=== PATIENT | female | born 1945 | race Caucasian/White ===

== ENCOUNTER 2018-10-14 07:27 | Day surgery (SDC) | payer OTHER ==
[~2018-10-14] VITALS: Ht 162.6 cm; Wt 77.6 kg
[~2018-10-14 07:27] MED LIST: ALEVE220 MG PO; AMITRIPTYLINE H25 MG PO; AMLODIPINE BES2.5 MG PO; AMLODIPINE BESYL5 MG PO; ANIMAL CHEWS1 EACH PO; ASPIRIN EC81 MG PO; AVAPRO75 MG PO; CELEBREX200 MG PO; CIPRO500 MG PO; CIPROFLOXACIN500 MG PO; COZAAR100 MG PO; FIBER1 GM PO; FISH OIL 1,0001 EAC5 PO; INVANZ1 GM IM; IRON325 M1 PO; KLOR-CON 1010 MEQ PO; LOSARTAN POTAS100 MG PO; METFORMIN HCL500 MG PO; MIRALAX17 GM PO; NORCO 7.5-3251 EACH PO; OXYCODONE HCL5 MG PO; PREMARIN0.45 MG PO; SENNA S TABLET1 EA PO; SULFAMETHOXAZO1 EAC1 PO; TRIAMTERENE-HC1 EAC1 PO; TRIAMTERENE-HC1 EAC2 PO; ULTRAM50 MG PO; VITAMIN C500 M2 PO; VITAMIN D1000 UNIT PO; VITAMIN E400 UNI1 PO; XARELTO10 MG PO
--- NOTE | 2018-10-14 09:44 | NUR ---
10/14/18 0944 Aparna Schwartz 0922-PATIENT ARRIVED TO PACU ON 3L NC PLACED ON 2L. REACTIVE TO VOICE OPENS EYES DENIES PAIN OR NAUSEA. DROWSY BACK TO SLEEP. PASSING GAS. ABDOMEN SOFT. RR EVEN.
--- NOTE | 2018-10-14 14:47 | NUR ---
PT IN BED, ALERT, ORIENTED AND SUPPORTED BY HER FAMILY. PT HAS HAD SCOPE BEFORE, SEEMED TO TOLERATE PREP. VERY PLEASANT, PT REQUESTED PRAYER-WILL FOLLOW NEEDED
--- NOTE | 2018-10-15 06:15 | OR ---
[facility] [address], [place] [address] Signed DATE OF OPERATION: 10/14/2018 SURGEON: Adelaide Morales MD DATE OF PROCEDURE: 10/14/2018 PREOPERATIVE DIAGNOSES: 1. Personal history of colonic polyps at age 53 (1993). 2. Paternal aunts x2 with colon cancer. 3. A paternal uncle with colon cancer. POSTOPERATIVE DIAGNOSES: 1. 4 mm polyps at 52 cm, 42 cm and 22 cm. 2. Minimal sigmoid diverticulosis. 3. Minimal internal hemorrhoids. PROCEDURE PERFORMED: Colonoscopy with hot biopsy. ESTIMATED BLOOD LOSS: None. INDICATIONS: Obdulia is a 73-year-old female who was asked to see me for a followup colonoscopy. She remembers having a colonoscopy around age 53 back in 1993. She had three colonic polyps removed. She had a colonoscopy about 10 years later and remembers it being negative. However, two paternal aunts and one paternal uncle had colon cancer. She tells me she has no lower GI complaints. She was asked to see me for a colonoscopy. I met with Obdulia in the office. I gave her a pamphlet on colonoscopy. We reviewed that together along with the risks and benefits. She understands there is risk including, but not limited to gas bloating, crampy abdominal pain, bleeding, perforation, requiring surgery, and missed diagnosis. She also understands the need for IV conscious sedation. She had expressed understanding and wished to proceed. PROCEDURE NOTE: Obdulia was taken into our endoscopy suite and placed in the left lateral decubitus position. She was given preoperative antibiotic because of her left knee replacement. She was also given 6 mg of Versed and 100 mcg of fentanyl to cover the case. A digital rectal exam was performed and this was unremarkable. The adult colonoscope was Electronically Signed By: ADELAIDE MORALES MD 10/15/18 0615 PATIENT NAME: OBDULIA CAGLE OPERATIVE REPORT DATE OF : 41 REPORT #: [id number] PHYSICIAN: ADELAIDE MORALES MD PCP: NO APPIAH MD REPORT IS CONFIDENTIAL AND NOT TO BE RELEASED WITHOUT AUTHORIZATION [facility] [address], [place] [address] Signed introduced and advanced all around into the cecum under direct visualization of camera without difficulty. Her prep was quite good. The scope was slowly withdrawn. We took pictures throughout for photodocumentation. We could easily see the appendiceal orifice, the samish's foot, and the ileocecal valve. The above-mentioned polyps were easily removed with the help of hot biopsy forceps. She had just a few small diverticula in the sigmoid colon. Upon retroflexion of scope in the rectum, she just had minimal internal hemorrhoids. After this, the gas was suctioned out and colonoscope removed. Obdulia tolerated the procedure quite well. RECOMMENDATIONS: I will see Obdulia back in my office in 7 to 14 days to review her results. Adelaide Morales MD ALB/MODL /[id number] cc: No Appiah MD Copies: ~ Electronically Signed By: ADELAIDE MORALES MD 10/15/18 0615 PATIENT NAME: OBDULIA CAGLE JEANNA OPERATIVE REPORT DATE OF : 41 REPORT #: [id number] PHYSICIAN: ADELAIDE MORALES MD PCP: NO APPIAH MD REPORT IS CONFIDENTIAL AND NOT TO BE RELEASED WITHOUT AUTHORIZATION
== END 2018-10-14 10:32 | disposition home or self-care (01) ==
LOC: OPS 07:27 → DS 07:27 → OPS 10:32 → DS 11:00
PROVIDERS: Colon & Rectal Surgery
PROC: 0DBE8ZX Excision of Large Intestine, Via Natural or Artificial Opening Endoscopic, Diagnostic (ICD-10-PCS; principal; 2018-10-14 09:00)
DX: Z12.11 Encounter for screening for malignant neoplasm of colon (principal); K63.5 Polyp of colon; K64.8 Other hemorrhoids; K57.30 Diverticulosis of large intestine without perforation or abscess without bleeding; I10 Essential (primary) hypertension; E11.9 Type 2 diabetes mellitus without complications; Z88.6 Allergy status to analgesic agent; Z88.2 Allergy status to sulfonamides; Z88.8 Allergy status to other drugs, medicaments and biological substances; Z86.010 Personal history of colon polyps; Z79.899 Other long term (current) drug therapy
CPT/HCPCS: 99153; G0500; J2250; J3010; J7120

== ENCOUNTER 2018-12-25 17:43 | Emergency (ER) | payer OTHER ==
[~2018-12-25] VITALS: Ht 162.6 cm; Wt 77.6 kg
[2018-12-25] MEDS ORDERED: NORCO 5-325 TA1 EACH PO (19:11)
== END 2018-12-25 19:16 | disposition home or self-care (01) ==
LOC: ED 17:43
DX: S42.002A Fracture of unspecified part of left clavicle, initial encounter for closed fracture (principal); I10 Essential (primary) hypertension; Z87.891 Personal history of nicotine dependence; Z90.710 Acquired absence of both cervix and uterus; Z88.2 Allergy status to sulfonamides; Z88.1 Allergy status to other antibiotic agents; Z88.6 Allergy status to analgesic agent; Z79.899 Other long term (current) drug therapy; W18.30XA Fall on same level, unspecified, initial encounter
CPT/HCPCS: 71046; 73030; 99283-25

== ENCOUNTER 2023-05-28 14:10 | Inpatient (IN) | payer MEDICARE, OTHER ==
[~2023-05-28] VITALS: Ht 162.6 cm; Wt 57.7 kg
[~2023-05-28 14:10] MED LIST changes: +NORCO 5-325 TA1 EACH PO
[2023-05-28] MEDS ORDERED: VENTOLIN HFA18 GM INH (14:29)
[2023-05-28] MEDS ORDERED: METFORMIN HCL500 M1 PO (14:30)
[2023-05-28] MEDS ORDERED: AMLODIPINE BESYL5 MG PO (14:30)
[2023-05-28 14:58] LABS: BASOPHILS 0.7 % (0-2); EOSINOPHILS 5.3 % (0-6); HEMATOCRIT 39.8 % (35.0-50.0); HEMOGLOBIN 13.2 g/dL (12.0-18.0); LYMPHOCYTES 7.2 % (24-44); MCH 29.7 (27-36); MCHC 33.1 g/dl (30-36); MCV 89.6 fl (81-99); MONOCYTES 6.9 % (0-12); NEUTROPHILS 79.9 % (39-80); PLATELET COUNT 272 K/uL (140-440); RBC 4.45 M/ul (4.3-5.7); RDW 13.6 (10.5-15.0)
[2023-05-28 15:32] LABS: ALBUMIN 2.5 g/dL (3.4-5.0); ALBUMIN/GLOBULIN RATIO 0.69 (1.1-2.4); ANION GAP 11.7 (7-21); BILIRUBIN, TOTAL 0.5 ng/dL (0.2-1.0); BUN/CREATININE RATIO 18.38 (6.0-28.6); CALCIUM 8.4 mg/dL (8.5-10.1); CREATININE, SERUM 1.36 mg/dL (0.55-1.02); POTASSIUM 3.7 mmol/L (3.5-5.1); PROTEIN, TOTAL 6.1 g/dL (6.4-8.2)
[2023-05-28 17:04] LABS: INFLUENZA B NAA NEGATIVE (NEGATIVE); RESPIRATORY SYNCYTIAL VIR NAA NEGATIVE (NEGATIVE)
--- NOTE | 2023-05-28 19:00 | NUR ---
THIS RN DOWN TO GET PATIENT FROM ED. SKIN CHECK PROVIDED WITH ED NURSE. PATIENT NOTED TO HAVE RED COCCYX AND MULTIPLE SKIN ABRASIONS TO HER ARMS. PATIENT VITALS COMPLETED ON ARRIVAL TO CCU ROOM 128. PATIENT IS ADMITTED A MS HOUSE CONVIENCE PATIENT. PATIENT ORIENTED TO HER ROOM AND PLAN OF CARE. WILL GIVE REPORT TO MECHANICAL SHOVEL OPERATOR RN.
[2023-05-28 19:27] VITALS: BP 118/57
--- NOTE | 2023-05-28 19:45 | NUR ---
SHIFT REPORT RECEIVED. PATIENT APPEARS RESTFUL WITH EYES CLOSED. VS STABLE. CALL LIGHT IN REACH. ROOM CHECK DONE AND WHITE BOARD UPDATED.
--- NOTE | 2023-05-28 21:30 | NUR ---
PATIENT WOKE EASILY TO VOICE. PATIENT DENIED ANY CONCERNS AT THIS TIME. UP TO THE C TO VOID. PATIENT IS SLIGHTLY UNSTEADY ON HER FEET; 1PA TO STAND AND PIVOT REQUIRED. PATIENT TOLERATED ACTIVITY. PATIENT LUNG SOUNDS SIGNIFICANTLY DIMINISHED ON THE RIGHT. CLEAR ON THE LEFT. PATIENT DENIED SOB BUT APPEARS WINDED UPON TRANSFER BACK TO BED. PATIENT PROVIDED ICE WATER. ACCU CHECK DONE; HELD INSULIN DUE TO LACK OF PO INTAKE. PATIENT RESTING IN BED. CALL LIGHT IN REACH.
--- NOTE | 2023-05-28 22:00 | NUR ---
PICTURES TAKEN OF PATIENT'S RIGHT ARM FOR CHART. PATIENT REPORTS WOUNDS FROM GLF. AREAS CLEANED WITH WOUND ASSISTANT OPERATIONS MANAGER. NON-ADHERANT DRESSING PLACED AND WRAPPED WITH KERLEX.
[2023-05-28 22:01] VITALS: BP 132/92
--- NOTE | 2023-05-28 23:08 | EKG ---
[facility] [address] [facility] [place] [address] Signed Sinus rhythm with frequent premature ventricular complexes Left axis deviation Minimal voltage criteria for LVH, may be normal variant ( Sukhdev product ) Anteroseptal infarct , age undetermined Abnormal ECG No previous ECGs available Confirmed by Charito Richard MD () on 05/28/2023 11:08:54 PM Electronically Signed By: CHARITO RICHARD MD 05/28/23 2308 PATIENT NAME: OBDULIA CAGLE Electrocardiogram DATE OF : 41 PHYSICIAN: CHARITO RICHARD MD REPORT #: [id number] REPORT IS CONFIDENTIAL AND NOT TO BE RELEASED WITHOUT AUTHORIZATION
--- NOTE | 2023-05-29 01:15 | NUR ---
PATIENT UP TO THE BSC TO VOID. PATIENT MORE STABLE ON HER FEET. PATIENT VOIDED AND RETURNED TO BED. VS DONE. PATIENT DENIED FEELING SOB OR ANY GI UPSET. CALL LIGHT IN REACH.
[2023-05-29 01:19] VITALS: BP 152/75
--- NOTE | 2023-05-29 04:00 | NUR ---
PATIENT DESAT TO 85%. RN NOTED PATIENT'S NC HAD COME OFF. REPLACED 2L NC AND PATIENT'S Sp02 IMPROVED. PATIENT DENIED ANY CONCERNS. REPORTS SLEEPING WELL. APPEARS COMOFRTABLE. CALL LIGHT IN REACH.
[2023-05-29 04:55] VITALS: BP 148/83
--- NOTE | 2023-05-29 04:56 | NUR ---
PATIENT'S HEART RHYTHM CONTINUES TO HAVE FREQUENT PVCs. VS STABLE. HR <100 AND ADEQUATE BP. PATIENT DENIED ANY CONCERNS. ASSESSMENT UNCHANGED. ALLOWED PATIENT TO REST. LABS ORDERED FOR THIS MORNING.
[2023-05-29 05:14] LABS: HEMOGLOBIN 12.8 g/dL (12.0-18.0)
[2023-05-29 05:16] LABS: BASOPHILS 0.7 % (0-2); EOSINOPHILS 9.8 % (0-6); HEMATOCRIT 38.6 % (35.0-50.0); LYMPHOCYTES 8.7 % (24-44); MCH 29.6 (27-36); MCHC 33.2 g/dl (30-36); MCV 89.4 fl (81-99); MONOCYTES 7.8 % (0-12); PLATELET COUNT 232 K/uL (140-440); RBC 4.32 M/ul (4.3-5.7); RDW 13.8 (10.5-15.0)
[2023-05-29 05:30] LABS: ALBUMIN 2.3 g/dL (3.4-5.0); ALBUMIN/GLOBULIN RATIO 0.68 (1.1-2.4); ANION GAP 9.7 (7-21); BILIRUBIN, TOTAL 0.5 ng/dL (0.2-1.0); CREATININE, SERUM 0.95 mg/dL (0.55-1.02); MAGNESIUM 1.4 mg/dL (1.8-2.4); PHOSPHORUS, INORGANIC 3.7 mg/dL (2.5-4.9); POTASSIUM 3.7 mmol/L (3.5-5.1); PROTEIN, TOTAL 5.7 g/dL (6.4-8.2)
--- NOTE | 2023-05-29 06:33 | NUR ---
PATIENT UP TO THE BSC TO VOID AND BACK TO THE BED. SITTING AT THE EDGE OF THE BED. COFFEE AND WATER PROVIDED. PATIENT DENIED FEELING SOB OR HAVING PAIN. CONTINUES TO HAVE 2L NC. DISCUSSED LABS AND HEART RHYTHM WITH . ORDERS RECEIVED FOR MAG REPLACEMENT. SEE EMAR.
--- NOTE | 2023-05-29 07:30 | NUR ---
REPORT RECEIVED FROM SHAWN FAULKNER. PT RESTING WITH EYES CLOSED, RESP EVEN AND UNLABORED. ON GRADUATE STUDENT WITH HR 90'S.
[2023-05-29 08:28] VITALS: BP 116/93
[2023-05-29 08:38] LABS: CALCIUM 8.2 mg/dL (8.5-10.1)
[2023-05-29] MEDS ORDERED: LOSARTAN POTAS100 MG PO (08:38)
[2023-05-29] MEDS ORDERED: AMITRIPTYLINE H25 MG PO (08:42)
[2023-05-29] MEDS ORDERED: PRAVASTATIN SOD40 MG PO (08:43)
--- NOTE | 2023-05-29 08:58 | NUR ---
DR RAMIREZ IN TO SEE PT AND DISCUSS PLAN OF CARE WITH HER AND HER . PHYSICAL THERAPY NOW IN TO EVALUATE PT.
--- NOTE | 2023-05-29 10:11 | NUR ---
MED REC COMPLETE
--- NOTE | 2023-05-29 11:00 | NUR ---
DR FLORIAN MONROE TO SEE PT AND DISCUSS PLAN FOR THORACENTESIS LATER TODAY.
--- NOTE | 2023-05-29 11:32 | NUR ---
PT IN [facility] [employer]. GAVE GUIDEPOST WITH PRAYER CARD AND CONTACT CARD. PRAYED FOR RELIEF FROM DISCOMFORT AND ABIDING PEACE.
--- NOTE | 2023-05-29 11:36 | NUR ---
PATIENT ALERT AND ORIENTED UP IN RECLINER. STATES SHE LIVES WITH SPOUSE CURRENTLY, BUT IS MOVING INTO TRAILER HOME WITH SPOUSE AND GRANDDAUGHTER. STATES THERE ARE STEPS TO GET IN, FAMILY IS PLANNING ON BUILDING A RAMP. STATES SHE HAS A WALKER, SHE HAS JUST RECENTLY BEGUN TO USE. DENIES OTHER DME AT THIS TIME. STATES SHE STILL DRIVES, OCCASIONALLY. FAMILY IS ALSO ABLE TO ASSIST WITH DRIVING/TRANSPORTATION, HOWEVER, AFTER DISCUSSION WITH PT, FEEL PATIENT SHOULD NOT BE DRIVING. PATIENT AGREEABLE TO HOME HEALTH PT/OT AT DC TO HOME. STATES SHE IS NOT HAVING ISSUES FINANCIALLY, BECAUSE HER AND HER SPOUSE AND GRANDDAUGHTER WILL BE LIVING WITH EACHOTHER TO HELP SUPPORT THEM ALL. DENIES CURRENT NEEDS AT THIS TIME. STATES [facility] IS HER PREFERENCE FOR HOME HEALTH SINCE SHE IS RELOCATING TO [facility].
--- NOTE | 2023-05-29 13:18 | NUR ---
Received call from Vicente Guzman RN. Planning to DC patient, but patient has been unable to reach her caregiver. [facility] nurse [facility] and spoke with KAUSHIK Caal. States she will contact caregiver company to let them know patient may be DC'd home today. KAUSHIK Caal, also states she has attempted to contact patient today with no answer regarding a reassessment to try increase caregiver hours when patient is DC'd to home. Ensured by nursing staff, patient has her cellphone at bedside.
--- NOTE | 2023-05-29 14:16 | NUR ---
Spoke with RAUL Caal RN. Will attempt to contact patient's agency for her caregiver to let them know patient will be staying again tonight per Dr. Degroot to continue to monitor respiratory function. Informed patient could be DC'd tomorrow. [place] would like DC Summary faxed to [phone]. [place] has attempted to call patient today to reassess her need for increased caregiver hours, but have been unable to reach patient. Vicente Guzman RN, states patient is requesting information regarding a "life alert." Information provided for ADT alert bracelets.
--- NOTE | 2023-05-29 14:26 | NUR ---
UR NOTE [facility] PLEURAL EFFUSION (ISC) INPATIENT 05/28/23 MET CLINICAL INDICATIONS FOR ADMISSION TO INPATIENT CARE
[2023-05-29 16:17] VITALS: BP 125/101
--- NOTE | 2023-05-29 16:30 | NUR ---
DR DU IN TO DO THORACENTESIS, UNABLE TO OBTAIN FLUID, PLAN TO TRY AGAIN TOMORROW. PT TOLERATED PROCEDURE WELL, ASSISTED WITH REOSITIONING UP IN BED AFTERWARDS.
--- NOTE | 2023-05-29 17:05 | NUR ---
PT SITTING IN BED WITH AT BEDSIDE.
--- NOTE | 2023-05-29 19:30 | NUR ---
SHIFT REPORT RECEIVED. PATIENT RESTING IN BED WATCHING TV. THIS RN AND XENIA RN IN ROOM TO TIDY THE ROOM. PATIENT DENIED ANY NEEDS OR CONCERNS. CALL LIGHT IN REACH.
--- NOTE | 2023-05-29 21:30 | NUR ---
PATIENT UP TO THE BATHROOM. Sp02 99% ON 2L NC. TRIALED PATIENT ON ROOM AIR FOR ACTIVITY. PATIENT Sp02 80% ON ROOM AIR AFTER 3 MINS. PATIENT REPORTED MILD SOB. 2L NC PLACED BACK ON PATIENT AND Sp02 IMPROVED >88%. RR 20. PATIENT LUNG SOUNDS ARE VERY DIM ON THE RIGHT WITH CLEAR LUNG SOUNDS THROUGHOUT THE LEFT LOBES. VS STABLE. PATIENT DENIED PAIN OR GI UPSET. MEDS GIVEN PER ORDER. WOUNDS ON RIGHT ARM REDRESSED. BACITRACIN AND NON-ADHEARANT PADS WRAPPED WITH KERLEX ON THE FOREARM AND WRIST. BACITRACIN AND AN ALYVEN PLACED ON THE RIGHT ELBOW. PATIENT PROVIDED FRESH LINEN AND A WARM BLANKET. LIGHTS DIMMED. DENIED FURTHER NEEDS. CALL LIGHT IN REACH. PATIENT AGREES TO CALL PRIOR TO EXITING THE BED IF SHE NEEDS TO VOID.
--- NOTE | 2023-05-29 22:13 | NUR ---
patient sitting up in bed; reports being mildly short of breath. patient reports a neb helped earlier in the day. rt called for prn neb.
[2023-05-29 22:52] VITALS: BP 128/82
--- NOTE | 2023-05-29 23:15 | NUR ---
PATIENT RESTING IN BED WITH EYES CLOSED. VS STABLE. ALLOWED PATIENT TO REST. CALL LIGHT IN REACH.
[2023-05-30] VITALS (20 sets, daily range): BP systolic 96–140; BP diastolic 56–99
--- NOTE | 2023-05-30 01:30 | NUR ---
PATIENT RESTING WITH EYES CLOSED. NC IN PLACE; Sp02 >90% ON 2L NC.
--- NOTE | 2023-05-30 03:30 | NUR ---
PATIENT DENIED ANY NEEDS. DENIED SOB. CALL LIGHT IN REACH.
--- NOTE | 2023-05-30 06:00 | NUR ---
PATIENT UP TO THE BATHROOM WITH FWW ON 2L NC. PATIENT TOLERATED WELL. DENIED SOB. PATIENT BACK TO BED. SITTING AT THE EDGE. FRESH WATER AND COFFEE PROVIDED. PATIENT'S DRESSING ON RIGHT ARM HAD BEEN REMOVED. REPLACED WITH ALYVEN. PATIENT DENIED OTHER NEEDS.
--- NOTE | 2023-05-30 07:30 | NUR ---
REPORT RECEIVED FROM SHAWN FAULKNER. PT IS AWAKE IS RESTING IN BED WITH EYES CLOSED, ON 2L/O2, SPO2 94%.
--- NOTE | 2023-05-30 08:00 | NUR ---
IN TO SEE PT, FAMILY IN ROOM, NO REQUESTS AT THIS TIME.
[2023-05-30 08:57] LABS: BASOPHILS 0.4 % (0-2); EOSINOPHILS 4.7 % (0-6); HEMATOCRIT 41.2 % (35.0-50.0); HEMOGLOBIN 13.7 g/dL (12.0-18.0); LYMPHOCYTES 6.5 % (24-44); MCH 29.8 (27-36); MCHC 33.3 g/dl (30-36); MCV 89.6 fl (81-99); MONOCYTES 7.4 % (0-12); PLATELET COUNT 266 K/uL (140-440); RBC 4.59 M/ul (4.3-5.7); RDW 13.9 (10.5-15.0)
--- NOTE | 2023-05-30 09:02 | NUR ---
DR RICHARD IN TO SEE PT AND DISCUSS PLAN OF CARE FOR THE DAY
[2023-05-30 09:13] LABS: ALBUMIN 2.7 g/dL (3.4-5.0); ALBUMIN/GLOBULIN RATIO 0.71 (1.1-2.4); ANION GAP 13.2 (7-21); BILIRUBIN, TOTAL 0.6 ng/dL (0.2-1.0); BUN/CREATININE RATIO 20.22 (6.0-28.6); CALCIUM 8.6 mg/dL (8.5-10.1); CREATININE, SERUM 0.89 mg/dL (0.55-1.02); MAGNESIUM 1.4 mg/dL (1.8-2.4); POTASSIUM 4.2 mmol/L (3.5-5.1); PROTEIN, TOTAL 6.5 g/dL (6.4-8.2)
--- NOTE | 2023-05-30 09:56 | NUR ---
ASSISTING DR DU WITH CHEST TUBE INSERTION, PT GIVEN 100MCG IV FENTANYL FOR PROCEDURE. PT REMAINS AROUSABLE DURING PROCEDURE, FOLLOWING COMMANDS. TOLERATED PROCEDURE WELL, WITH RETURN OF SEROSANGUINOUS FLUID.
--- NOTE | 2023-05-30 12:00 | NUR ---
PT REMAINS SLEEPING, DOES ROUSE WITH VERBAL STIUMULI BUT GOES BACK TO SLEEP. CHEST TUBE CONT TO DRAIN SS FLUID, CHEST TUBE TO WALL SUCTION, NO AIR LEAK NOTED AT THIS TIME. PT REMAINS ON 3L/O2
--- NOTE | 2023-05-30 13:51 | NUR ---
IN TO CHECK ON PT, SHE HAS REMAINED MOSTLY SLEEPING, DOUSE AROUSE EASILY TO VERBAL STIMULI, DENIES NEEDS AT THIS TIME. O2 AT 3L/NC, SPO2 8%, RR 20. CHEST TUBE IN PLACE DRAINING SEROSANG FLUID.
--- NOTE | 2023-05-30 13:56 | CONS ---
[facility] [address], [place] [address] Signed DATE OF CONSULTATION: 05/29/2023 REQUESTING PHYSICIAN: Dr. Degroot. 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 HISTORY OF PRESENT ILLNESS: This 78-year-old white woman was admitted to the hospital yesterday with acute respiratory distress under the direction of Dr. Dergoot having presented to the emergency room and evaluated by Dr. Brooks. She has not smoked in over 28 years. She does have underlying COPD and uses a metered-dose inhaler. She has had shortness of breath and a 35-pound weight loss since this past year. She has had mild peripheral edema as well. Upon presentation, she did undergo a chest x-ray which showed a moderate right-sided pleural effusion and subsequent CT scan of the chest, which showed not only a large effusion, but a spiculated 3.1 cm mass in the right lung apex with pleural invasion consistent with primary lung cancer. Widespread metastatic disease with large pleural effusion was noted. A thoracic aortic aneurysm of 4.6 cm in size was noted as well. She has been admitted to the Intensive Care Unit. At present, she does not feel particularly short of breath, at least not too much right now. She does feel better with supplemental oxygen. REVIEW OF SYSTEMS: She has had no hemoptysis. She has had shortness of breath. She denies chest pain. PHYSICAL EXAMINATION: GENERAL: A very pleasant white woman who is sitting upright with nasal cannula oxygen in place with O2 saturation of 94%. NECK: Trachea is midline. She has no hoarseness. CHEST: Shows normal respiratory excursion without tachypnea at this time. ABDOMEN: Nondistended. EXTREMITIES: Show mild peripheral edema. LABORATORY STUDIES: CBC from yesterday showed a white count of 11.2, platelets 272,000. Chem profile normal. Creatinine elevated at 1.36. ASSESSMENT: I reviewed her CT scan, which shows a sizable right pleural effusion and an obvious Electronically Signed By: RAMSEY DU MD 05/30/23 1356 PATIENT NAME: OBDULIA CAGLE CONSULTATION DATE OF : 41 REPORT #: [id number] PHYSICIAN: RAMSEY DU MD PCP: YAQUELIN PALMA MD REPORT IS CONFIDENTIAL AND NOT TO BE RELEASED WITHOUT AUTHORIZATION [facility] [address] [place] [id number] Signed malignant mass in the right upper lobe. A thoracentesis was requested and it is reasonable to assess cytology and perhaps improve her oxygenation for now. Consideration might be made for pleurodesis in the future depending on the symptomatic nature of her effusion. Her problem is incurable on the basis of presumed malignant pleural effusion. It would be quite unlikely that cytology will be negative, but if so consideration could be made for more aggressive treatment depending on findings. Palliative interventions could include radiation therapy and chemotherapy it is noted. Those issues would be separate and distinct and considered only after the diagnosis is more firmly established as to cell type of lung cancer. I discussed the risk of bleeding, infection, and pneumothorax related to right-sided thoracentesis, which we would perform today. She understands and wished to proceed. Ramsey Du MD JM/MODL /[id number] cc: Sergo Degroot MD Copies: ~ Electronically Signed By: RAMSEY DU MD 05/30/23 1356 PATIENT NAME: OBDULIA CAGLE CONSULTATION DATE OF : 41 REPORT #: [id number] PHYSICIAN: RAMSEY DU MD PCP: YAQUELIN PALMA MD REPORT IS CONFIDENTIAL AND NOT TO BE RELEASED WITHOUT AUTHORIZATION
--- NOTE | 2023-05-30 13:56 | OR ---
[facility] [address] [place], [place] [address] Signed DATE OF OPERATION: 05/29/2023 SURGEON: Ramsey Du MD PREOPERATIVE DIAGNOSIS: Right pleural effusion, probably malignant and associated right lung mass. POSTOPERATIVE DIAGNOSIS: Right pleural effusion, probably malignant and associated right lung mass. PROCEDURE: Attempted right thoracentesis. ANESTHESIA: Local 1% lidocaine. DESCRIPTION OF PROCEDURE: In the upright position with the arms draped over a support and pillow. The tip of the scapula was identified and marked on the skin. The arms were placed anteriorly and superiorly over the support. The area was prepared with a chlorhexidine solution and draped sterilely. A 1% lidocaine was injected directly over the area of the 7th rib, this was on the right side in the midscapular area. Care was taken to provide anesthesia directly onto the 7th rib and over the surface of it. The pleural space interrogation did not deliver fluid. Additional local anesthesia was given. The site was incised with an 11 blade, and using a thoracentesis catheter the pleural space entered, but no meaningful withdrawal of fluid. Two additional attempts of a similar type were made, one more medial and one in the anterolateral aspect near the serratus anterior muscle complex. Still there was no meaningful fluid withdrawal. A postprocedure chest x-ray was obtained, showing no sign of pneumothorax. Loculation of the fluid in the right base may be thicker or less easy able to extract the thoracentesis and anticipated. PLAN: We will revisit the issue tomorrow possibly with ultrasound guidance to provide drainage of a pleural space. Alternatively, a chest tube may be advisable to allow for withdrawal of fluid if deemed appropriate palliative pleurodesis. Electronically Signed By: RAMSEY DU MD 05/30/23 1356 PATIENT NAME: OBDULIA CAGLE OPERATIVE REPORT DATE OF : 41 REPORT #: [id number] PHYSICIAN: RAMSEY DU MD PCP: YAQUELIN PALMA MD REPORT IS CONFIDENTIAL AND NOT TO BE RELEASED WITHOUT AUTHORIZATION [address] [address] Signed MD ÁNGEL Kothari/MODL /[id number] cc: MD Dr. Zane Donovan Copies: ~ Electronically Signed By: RAMSEY DU MD 05/30/23 1356 PATIENT NAME: OBDULIA CAGLE OPERATIVE REPORT DATE OF : 41 REPORT #: [id number] PHYSICIAN: RAMSEY DU MD PCP: YAQUELIN PALMA MD REPORT IS CONFIDENTIAL AND NOT TO BE RELEASED WITHOUT AUTHORIZATION
--- NOTE | 2023-05-30 15:45 | NUR ---
PT AWAKE AND SITTING UP IN BED. DENIES PAIN OR SOB AT THIS TIME. ASSISTED WITH GETTING UP TO BSC TO VOID, BED BATH GIVEN. PT WANTING TO REMAIN SITTING UP FOR A WHILE, LEFT WITH CALL LIGHT IN REACH.
--- NOTE | 2023-05-30 17:00 | NUR ---
DR RICHARD INFORMED OF LOW URINE OUTPUT, ORDER GIVEN TO START IVF.
--- NOTE | 2023-05-30 19:30 | NUR ---
SHIFT REPORT RECEIVED. SUZANNE RN AND XENIA RN AT BEDSIDE. PATIENT HOB ELEVATED, EYES CLOSED AND APPEARS COMFORTABLE. VS STABLE. Sp02 99% ON 1L NC. TITRATED TO ROOM AIR. CHEST TUBE IN PLACE, WNL. ALLOWED PATIENT TO REST. CALL LIGHT IN REACH.
--- NOTE | 2023-05-30 20:30 | NUR ---
PATIENT CONTINUES TO BE DORWSY. WOKE TO TOUCH AND VOICE. PATIENT DENIED ANY CONCERNS. ACCU CHECK DONE. PATIENT DOES NOT STAY AWAKE ENOUGH FOR PO MEDS; PO MEDS NOT GIVEN. PATIENT LUNG SOUNDS ARE CLEAR IN SHREYA UPPER BUT DIFFICULT TO HEAR DUE TO SHALLOW BREATHS. Sp02 >90% ON ROOM AIR. CHEST TUBE WNL. DRAINAGE NOTED IN TUBING TO BE SEROSANGUENOUS. PATIENT VS STABLE. IV SITE WNL X2; FLUIDS PER ORDER. ALLOWED PATIENT TO REST.
--- NOTE | 2023-05-30 21:00 | NUR ---
PATIENT PLACED BACK ON 2L NC AFTER PLAN OF CARE DISCUSSION WITH RT. PATIENT CONTINUES TO REST COMFORTABLY. CALL LIGHT IN REACH.
--- NOTE | 2023-05-30 22:15 | NUR ---
PATIENT REPOSITIONED IN BED. HOB ELEVATED. PATIENT TOLERATED WELL. DENIED ANY NEEDS. CONTINUES TO BE SLIGHTLY DROWSY. VS STABLE. 2L NC IN PLACE.
[2023-05-31] VITALS (14 sets, daily range): BP systolic 104–138; BP diastolic 71–85
--- NOTE | 2023-05-31 00:30 | NUR ---
PATIENT CALLED TO BE ASSISTED WITH REPOSITIONING. THIS RN AND RT REPOSITIONED PATIENT AND HOB ELEVATED FOR PATIENT TO SIT AT >45 DEGREES PER HER REQUEST. PATIENT IS MORE ALERT. VS STABLE. DIFFICULT TO OBTAIN Sp02 READING ON PATIENT'S FINGER. RT PLACED PATIENT ON EAR PROBE AND MORE CONSISTENT READING OBTAINED. PATIENT Sp02 >95% ON 2L NC. PATIENT DENIED SON; LUNG SOUNDS IMPROVED. CLEAR THROUGHOUT AND SLIGHTLY DIM ON LLL. CHEST TUBE IN PLACE AND CONTINUES TO HAVE SEROSANG DRAINAGE. PATIENT REPORTS 0/10 PAIN; STATES "I HAVE A REALLY HIGH PAIN TOLERANCE". PATIENT DOES NOT APPEAR UNCOMFORTABLE. IV SITE WNL; FLUIDS PER ORDER. PATIENT DENIED OTHER NEEDS. CALL LIGHT IN REACH.
--- NOTE | 2023-05-31 02:00 | NUR ---
PATIENT CONTINUES TO REST QUIETLY. VS STABLE. CHEST TUBE IN PLCAE, WNL. IV SITE WNL, FLUIDS PER ORDER.
--- NOTE | 2023-05-31 04:30 | NUR ---
PATIENT HAS YET TO VOID, DISCUSSED WITH MD. PATIENT RECEIVING IV FLUIDS AT 100 ML/HR. MINIMAL ORAL INTAKE. WILL REASSESS IN 2 HOURS. NO NEW ORDERS.
[2023-05-31 05:38] LABS: BASOPHILS 0.8 % (0-2); HEMATOCRIT 39.6 % (35.0-50.0); LYMPHOCYTES 9.4 % (24-44); MCH 29.6 (27-36); MCHC 32.9 g/dl (30-36); MCV 90.1 fl (81-99); NEUTROPHILS 74.8 % (39-80); PLATELET COUNT 247 K/uL (140-440); RDW 13.8 (10.5-15.0)
[2023-05-31 05:59] LABS: ALBUMIN 2.4 g/dL (3.4-5.0); ALBUMIN/GLOBULIN RATIO 0.73 (1.1-2.4); ANION GAP 11.4 (7-21); BILIRUBIN, TOTAL 0.6 ng/dL (0.2-1.0); BUN/CREATININE RATIO 21.34 (6.0-28.6); CALCIUM 8.4 mg/dL (8.5-10.1); CREATININE, SERUM 0.89 mg/dL (0.55-1.02); MAGNESIUM 1.6 mg/dL (1.8-2.4); POTASSIUM 4.4 mmol/L (3.5-5.1); PROTEIN, TOTAL 5.7 g/dL (6.4-8.2)
--- NOTE | 2023-05-31 06:00 | NUR ---
PATIENT UP TO THE EDGE OF THE BED. ENCOURAGED PATIENT TO ATTEMPT TO VOID. PATIENT IS UNSTEADY BUT STOOD AND PIVOT TO THE BSC WITH ASSISTANCE. PATIENT VOIDED 200 MLS OF CONCENTRATED URINE. PATIENT RETURNED TO BED. CHEST TUBE IN PLACE; WNL. PATIENT ON 2L NC. VS STABLE.
--- NOTE | 2023-05-31 07:30 | NUR ---
REPORT RECEIVED FROM FORECAST ANALYST.
--- NOTE | 2023-05-31 08:07 | NUR ---
ASSESSMENT COMPLETE. PT SITTING UP IN BED TALKING TO AT BEDSIDE. CHEST TUBE DRAINING YELLOW FLUID. RLL SOUNDS CLEAR, SLIGHTLY DIMINSHED. PT DENIES PAIN AND REPORTS FEELING BETTER TODAY. PT A&O X4. DISCUSSED BREAKFAST COMING SOON AND PT REPORTS FEELING HUNGRY THIS MORNING. BLOOD SUGAR WITHIN RANGE. FRESH WATER GIVEN. CALL LIGHT WITHIN REACH
--- NOTE | 2023-05-31 09:37 | NUR ---
BREAKFAST TRAY CLEARED. PT'S FAMILY IN ROOM. DR. RICHARD IN ROOM. PT DENIES PAIN AND TOLERATED HER BREAKFAST. APPETITE INCREASING. CHEST TUBE SLOWING DOWN ON DRAINAGE. MAG REPLACEMENT STARTED.
--- NOTE | 2023-05-31 10:39 | NUR ---
PT SITTING UP IN BED ON PHONE. DENIES NEEDS AT THIS TIME.
--- NOTE | 2023-05-31 11:14 | NUR ---
PT UP TO CHAIR IN ROOM. LINENS CHANGED. COFFEE AND WATER PROVIDED. FLUID FROM CHEST TUBE SENT TO LAB PER ORDERS. PT TOLERATED AMBULATION WITH FWW WITH STAND BY ASSIST.
[2023-05-31 12:28] LABS: APPEARANCE, BODY FLUID SLIGHTLY CLOUDY
[2023-05-31 12:29] LABS: MONONUCLEAR CELLS, BODY FLUID 32; PMNS, BODY FLUID 68
--- NOTE | 2023-05-31 13:07 | NUR ---
PT REMAINS UP IN CHAIR. LUNCH TRAY PROVIDED. PROVIDED FRESH ICE WATER AND ENCOURAGED PT TO DRINK MORE SHE HAS NOT MADE ANY URINE THIS DAY SHIFT. PT AGREEABLE
--- NOTE | 2023-05-31 14:05 | OR ---
[facility] [address], [place] [address] Signed DATE OF OPERATION: 05/30/2023 SURGEON: Ramsey Du MD PREOPERATIVE DIAGNOSIS: Large right-sided pneumothorax with persistent pleural effusion. POSTOPERATIVE DIAGNOSIS: Large right-sided pneumothorax with persistent pleural effusion. PROCEDURE: Placement of right 20-Malagasy chest tube. ANESTHESIA: 1% lidocaine with epinephrine and fentanyl 100 mcg IV. INDICATION: This 78-year-old white woman was admitted on May [address] 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 Thoracentesis for fluid collection and improvement of her dyspnea was requested and performed yesterday. However, despite three separate areas of interrogation of the right chest fluid was not withdrawn in any meaningful way. A postprocedure chest x-ray appeared to show no sign of pneumothorax on my examination; the report was rather delayed, but did show an apical pneumothorax which was small. This morning, she had a much larger pneumothorax and persistence of the right pleural effusion and on that basis, a chest tube is indicated. The risk of bleeding, infection, and so forth were reviewed with the patient. She understands and wished to proceed. FINDINGS: Entry to the pleural space allowed for egress of air, but also considerable amount of clear serous yellow straw-colored fluid. There was no sign of bloody effusion in any way. 1000 mL were ultimately extracted. Postprocedure chest x-ray showed good expansion of lung and improvement of the effusion. PROCEDURE IN DETAIL: In the semirecumbent position in her bed in the intensive care unit, the right arm was elevated, the right breast taped to the left to offer access to the right lateral chest. This area was prepared with chlorhexidine solution and draped sterilely. A 1% Electronically Signed By: RAMSEY DU MD 05/31/23 1405 PATIENT NAME: OBDULIA CAGLE OPERATIVE REPORT DATE OF : 41 REPORT #: [id number] PHYSICIAN: RAMSEY DU MD PCP: YAQUELIN PALMA MD REPORT IS CONFIDENTIAL AND NOT TO BE RELEASED WITHOUT AUTHORIZATION [facility] [address], [place] [address] Signed lidocaine was injected after administering 100 mcg of fentanyl IV. This was well tolerated. A transverse incision was made over the 6th rib in the anterior axillary line. The soft tissue was with a Candice clamp and the rib identified and with pressure placement of the clamp into the pleural space undertaken. This allowed for a denis of air and a fair amount of clear yellow fluid. Digital examination of the endothoracic fascia showed no sign of entrapment of lung or other problem. A 20-Malagasy straight chest tube was insinuated into the space, secured to the skin with an 0 silk suture. It was attached to a Pleur-evac device (Atrium actually) ultimately delivering a 1000 mL of straw-colored fluid. There was no sign of ongoing air leak. A gauze dressing was applied and pink tape was used to secure the chest tube to the lateral abdominal wall in two separate places. The tube was secured thoroughly to the Atrium device as well. She tolerated the procedure well. Ramsey Du MD JM/MODL /[id number] cc: CHARITO DEGROOT MD Copies: ~ Electronically Signed By: RAMSEY DU MD 05/31/23 1405 PATIENT NAME: OBDULIA CAGLE OPERATIVE REPORT DATE OF : 41 REPORT #: [id number] PHYSICIAN: RAMSEY DU MD PCP: YAQUELIN PALMA MD REPORT IS CONFIDENTIAL AND NOT TO BE RELEASED WITHOUT AUTHORIZATION
--- NOTE | 2023-05-31 14:07 | NUR ---
IN ROOM TO DISCUSS PLAN OF CARE. PT AGREEABLE AND ASKS APPROPRIATE QUESTIONS.
--- NOTE | 2023-05-31 14:13 | NUR ---
PHYSICAL THERAPY IN ROOM. PT'S ARRIVES. REPORT GIVEN REGARDING PLAN OF CARE
--- NOTE | 2023-05-31 15:01 | NUR ---
PT BACK TO BED WITH HELP FROM KAUSHIK MICHAELS. LUNCH TRAY REMOVED. PT STATES SHE "IS TIRED FROM PHYSICAL THERAPY" AND IS GOING TO [place]. CALL LIGHT AND BELONGINGS GIVEN.
--- NOTE | 2023-05-31 16:16 | NUR ---
PT LAYING IN BED EYES CLOSED, RESP EVEN AND UNLABORED. NEW BAG OF FLUID HUNG. PT DENIES NEEDS AT THIS TIME. CALL LIGHT ON LAP
--- NOTE | 2023-05-31 21:00 | NUR ---
PATIENT SITTING AT EDGE OF BED. AAOX4. ASSISTED UP TO BSC. PATIENT DOES WELL WITH 1PA. PATIENT VOIDED 200 ML CONCENTRATED URINE. PATIENT RETURNED TO BED. ASSISTED TO POSITION FOR COMFORT. SCHEDULED MEDS PROVIDED. PATIENT DENIES PAIN; RATES 0/10. NO GI UPSET. TOLERATING 2L NC. DENIES SOB WITH ACTIVITY. LUNG SOUNDS ARE CLEAR THROUGHOUT; SLIGHTLY DIM ON THE RIGHT SIDE. CHEST TUBE IN PLACE; SITE AND SUCTION WNL. VS STABLE. IV SITE SWITCHED FROM RIGHT HAND TO LEFT AC. SITE WNL X2. IV FLUIDS PER ORDER. PATIENT DENIED OTHER NEEDS. CALL LIGHT IN REACH. LIGHTS DIMMED.
--- NOTE | 2023-05-31 22:30 | NUR ---
IV SITE IN LEFT AC IS LEAKING. IV SITE DC. FLUIDS INFUSING IN IV SITE ON THE RIGHT THUMB/WRIST AREA. SITE WNL. PATIENT APPEARS SLIGHTLY UNCOMFORTABLE BUT DENIED ANY CONCERNS. RATES PAIN 0/10. ALLOWED PATIENT TO REST. CALL LIGHT IN REACH.
--- NOTE | 2023-05-31 23:35 | NUR ---
reported patient's low urine output to MD. order to increase patient's IV fluids to 125 ml/hr. verified via repeat back.
--- NOTE | 2023-05-31 23:55 | NUR ---
IV FLUIDS INCREASED TO 125 ML/HR. PATIENT SITTING UP IN BED. REPORTS HAVING TROUBLE STAYING ASLEEP. DENIED PAIN OR ANY NEEDS. STATES "ILL FALL ASLEEP EVENTUALLY". ENCOURAGED PATIENT TO CALL FOR ANY NEEDS. IV SITE WNL. CHEST TUBE IN PLACE, WNL. CALL LIGHT IN REACH.
[2023-06-01] VITALS (10 sets, daily range): BP systolic 115–134; BP diastolic 66–898
--- NOTE | 2023-06-01 02:15 | NUR ---
PATIENT APPEARS RESTFUL. EYES CLOSED. VS STABLE. CALL LIGHT IN REACH.
--- NOTE | 2023-06-01 04:15 | NUR ---
PATIENT DENIED ANY CONCERNS. SITTING AT EDGE OF BED. ENCOURAGED PATIENT TO GET UP TO VOID; PATIENT DECLINED NEED. IV SITE WNL; FLUIDS PER ORDER. CHEST TUBE WNL. LUNG SOUNDS CLEAR THROUGHOUT. 2L NC IN PLACE. PATIENT DENIED PAIN OR GI UPSET. ENCOURAGED PATIENT TO REST. CALL LIGHT IN REACH.
--- NOTE | 2023-06-01 06:25 | NUR ---
ASSISTED PATIENT UP TO THE BSC. PATIENT TOLERATED WELL. PATIENT VOIDED 200 MLS CONCENTRATED URINE. PATIENT DENIED PAIN OR GI UPSET. CHEST TUBE OUTPUT 100 MLS FOR THE SHIFT. IV SITE WNL; FLUIDS PER ORDER. VS STABLE.
--- NOTE | 2023-06-01 07:55 | NUR ---
DR HOFFMAN IN TO SEE PT.
--- NOTE | 2023-06-01 10:45 | NUR ---
PT HAS JUST FINISHED WORKING WITH PHYSICAL THERAPY AND IS NOW SITTING UP IN THE CHAIR. PT REPORTS FEELING SLIGHTLY SHORT OF BREATH WITH ACTIVITY BUT OVERAL SATS REMAINED IN 90'S AND RR INCREASED ONLY SLIGHTLY TO 20'S. PT REMAINS IN A CHEERFUL MOOD, DENIES PAIN OR NEEDS, CALL LIGHT IN HAND.
[2023-06-01 11:10] LABS: TOTAL PROTEIN FLUID SOURCE Pleural fluid (()); TOTAL PROTEIN, BODY FLUID 2.4 g/dL (())
--- NOTE | 2023-06-01 13:17 | NUR ---
EXERCISED MINISTRY OF PRESENCE AND ASSISTED PT WITH CHAIR. PRAYED SILENTLY FOR AMISH OF HEALTH.
--- NOTE | 2023-06-01 14:00 | NUR ---
CHEST TUBE REMOVED BY DR DU, PT TOLERATED WELL. PT THEN LEFT IN BED TO REST.
--- NOTE | 2023-06-01 17:00 | NUR ---
DISCUSSED LOW URINE OUTPUT MERLE SHIN, ORDER GIVEN FOR 250ML BOLUS.
--- NOTE | 2023-06-01 17:16 | NUR ---
IN TO SEE PT, PT REMAINS UP IN CHAIR.
--- NOTE | 2023-06-01 18:04 | NUR ---
PT HAD RUN OF 39 BEATS OF VTACH ON MONITOR, WIDE COMPLEX WITH RATE 170. DR HOFFMAN NOTIFIED, ORDER GIVEN FOR LAB WORK AND EKG.
[2023-06-01 18:07] LABS: GLUCOSE FLUID SOURCE Pleural fluid (()); GLUCOSE,BODY FLUID 170 mg/dL (()); LACTATE DEHYDROGENASE TOTAL,BF 357 U/L (()); LDH FLUID SOURCE Pleural fluid (())
--- NOTE | 2023-06-01 18:25 | NUR ---
XRAY IN TO DO XRAY
[2023-06-01 18:32] LABS: ANION GAP 12.5 (7-21); BUN/CREATININE RATIO 23.07 (6.0-28.6); CALCIUM 8.7 mg/dL (8.5-10.1); CREATININE, SERUM 0.78 mg/dL (0.55-1.02); MAGNESIUM 1.4 mg/dL (1.8-2.4); PHOSPHORUS, INORGANIC 2.6 mg/dL (2.5-4.9); POTASSIUM 4.5 mmol/L (3.5-5.1)
--- NOTE | 2023-06-01 19:30 | NUR ---
RECEIVED SBAR HANDOFF FROM KAUSHIK MICHAELS. PATIENT STATES COMFORT AND DENIES ANY NEEDS. SAFETY CHECK PERFORMED. ALL PERSONAL ITEMS ON BEDSIDE TABLE. PATIENT ENDORSES KNOWLEDGE OF PROPER USE OF CALLIGHT AND HOW TO CALL RN SHOULD SHE NEED. SHE WAS REPOSITIONED THIS HOUR AND IS WATCHING TV.
--- NOTE | 2023-06-01 22:00 | NUR ---
PATIENT GURJIT WAS READJUSTED THIS HOUR. SHE CONTINUES TO ENDORSE COMFORT. TV WAS TURNED OFF AND WARM BLANKETS PROVIDED IN AN EFFORT FOR HER TO REST. VSS AND WDL PER MONITOR
--- NOTE | 2023-06-01 22:31 | NUR ---
READJUSTED PATIENT ON LEFT SIDE. SAFETY CHECK PERFORMED. VSS AND WDL PER MONITOR. PATIENT CONTINUES TO ENDORSE COMFORT AND DENIES ANY CURRENT NEEDS.
[2023-06-02] VITALS (7 sets, daily range): BP systolic 95–138; BP diastolic 66–100
--- NOTE | 2023-06-02 01:17 | NUR ---
PATIENT GURJIT ENDORSES COMFORT AND DENIES ANY NEEDS AT THIS TIME. SHE PULLED OUT IV LINE AND STATED THAT SHE DID NOT REALIZE THAT SHE HAD DONE SO. PER MD HOFFMAN, OK TO LEAVE PATIENT WITHOUT AN IV LINE DUE TO POSSIBLE DC HOME IN THE AM. WARM BLANKETS PROVIDED. CALL LIGHT WITHIN REACH AND BEDSIDE TABLE AND PERSONAL BELONGINGS NEAR PATIENT. VSS AND WDL PER MONITOR
--- NOTE | 2023-06-02 02:51 | NUR ---
PATIENT CAGLE IS RESTING WITH EYES CLOSED. VSS AND WDL PER MONITOR. SAFETY CHECK PERFORMED. CALL LIGHT NEAR PATIENT
--- NOTE | 2023-06-02 04:40 | NUR ---
PATIENT CAGLE IS RESTING WITH EYES CLOSED. VSS AND WDL PER MONITOR. 2L NC FOR COMFORT WHILE ASLEEP SAFETY CHECK PERFORMED. PERSONAL ITEMS AND REMOTE ON BEDSIDE TABLE
--- NOTE | 2023-06-02 06:19 | NUR ---
PATIENT GURJIT HAD A PLEASANT SHIFT AND WAS ABLE TO REST WITH EYES CLOSED. THERE WERE NO COMPLAINTS OR PAIN NOR DISCOMFORT. VSS AND WDL PER MONITOR. NEURO- ALERT AND ORIENTED X 4. 1 P ASSIST WITH FWW TO THE COMMODE DUE TO MULTIPLE GLF IN THE PAST 2 WEEKS. ABLE TO MOVE ALL EXTREMITIES WITH MINIMAL DIFFICULTY CARDIAC- SR WITH 1ST DEGREE AV BLOCK. BP MAINTAINED WITHIN NORMAL LIMITS. NO EDEMA NOTED RESP- RA FOR MOST OF THE NIGHT. 1LNC FOR PATIENT COMFORT X1HR. BREATH SOUNDS CLEAR/DIM GI/- MIRALAX GIVEN D/T CONSTIPATION, NO BM, ADEQUATE PO FLUID INTAKE INT- SEE ASSESSMENT LDA- N/A
--- NOTE | 2023-06-02 07:15 | NUR ---
REPORT FROM BO FAULKNER, PT RESTING IN BED, CALL LIGHT IN REACH.
--- NOTE | 2023-06-02 08:00 | NUR ---
BREAKFAST PROVIDED. PATIENT SITTING UP IN BED. VITALS AND I&OS CHARTED. WASHCLOTH PROVIDED FOR FACE AND HANDS. CALL LIGHT IN EASY REACH.
--- NOTE | 2023-06-02 08:10 | NUR ---
dr mattson in with pt and rn, pt sitting up at bedside for meal - no insulin this am, r chest drsg wnl from chest tube. pt denies needs, and pt discuss plan of care for dc today - joins in room.
--- NOTE | 2023-06-02 09:36 | NUR ---
call to dr steve office to schedule f/u visit.
--- NOTE | 2023-06-02 09:50 | NUR ---
TALKED WITH DR DU - CXR FOR F/U CT REMOVAL. NO APPT NEEDED FOR FLORIAN - PCP APPT. MADE BY THIS RN.
--- NOTE | 2023-06-02 09:53 | NUR ---
PT APPEARED TO BE SLEEPING. DID NOT WAKE. ON COUCH. EXERCISED MINISTRY OF PRESENCE. CONSENTED TO PRAYER. PRAYED FOR ALEVISM OF HEALTH AND ONGOING BLESSING.
--- NOTE | 2023-06-02 13:46 | NUR ---
FACE SHEET, PT/OT EVAL/NOTES, PROG NOTES, H&P AND DC SUMMARY, ORDERS AND FACE TO FACE FAXED TO [facility].
--- NOTE | 2023-06-02 15:08 | EKG ---
[facility] [address] [facility] [place] [address] Signed Sinus tachycardia Left axis deviation Anteroseptal infarct (cited on or before 28-MAY-2023) T wave abnormality, consider lateral ischemia Abnormal ECG When compared with ECG of 28-MAY-2023 14:45, premature ventricular complexes are no longer present T wave inversion more evident in Lateral leads Confirmed by ZULAY HOFFMAN MD ([id number]) on 06/02/2023 3:08:31 PM Electronically Signed By: ZULAY HOFFMAN 06/02/23 1508 PATIENT NAME: OBDULIA CAGLE Electrocardiogram DATE OF : 41 PHYSICIAN: ZULAY HOFFMAN REPORT #: [id number] REPORT IS CONFIDENTIAL AND NOT TO BE RELEASED WITHOUT AUTHORIZATION
== END 2023-06-02 12:30 | disposition home or self-care (01) | DRG 180 ==
LOC: ED 14:10 → CCU 18:27
PROVIDERS: Emergency Medicine; Internal Medicine; ADMIT Family Medicine; ATTEND Family Medicine
PROC: 0W9930Z Drainage of Right Pleural Cavity with Drainage Device, Percutaneous Approach (ICD-10-PCS; principal; 2023-05-29)
PROC: 0W9930Z Drainage of Right Pleural Cavity with Drainage Device, Percutaneous Approach (ICD-10-PCS; 2023-05-30)
DX: C34.90 Malignant neoplasm of unspecified part of unspecified bronchus or lung (principal); J96.01 Acute respiratory failure with hypoxia; J93.9 Pneumothorax, unspecified; C79.89 Secondary malignant neoplasm of other specified sites; J91.0 Malignant pleural effusion; N17.9 Acute kidney failure, unspecified; E44.0 Moderate protein-calorie malnutrition; Z66 Do not resuscitate; J44.9 Chronic obstructive pulmonary disease, unspecified; R63.4 Abnormal weight loss; E83.42 Hypomagnesemia; E11.65 Type 2 diabetes mellitus with hyperglycemia; I10 Essential (primary) hypertension; I71.21 Aneurysm of the ascending aorta, without rupture; Z87.891 Personal history of nicotine dependence; Z90.49 Acquired absence of other specified parts of digestive tract; Z96.652 Presence of left artificial knee joint; Z90.710 Acquired absence of both cervix and uterus; Z88.2 Allergy status to sulfonamides; Z88.8 Allergy status to other drugs, medicaments and biological substances; Z79.899 Other long term (current) drug therapy; Z79.84 Long term (current) use of oral hypoglycemic drugs; Z79.891 Long term (current) use of opiate analgesic; Z68.21 Body mass index [BMI] 21.0-21.9, adult; Z11.52 Encounter for screening for COVID-19
CPT/HCPCS: 32551; 32554; 36415; 71045; 71260; 80048; 80053; 82945; 83735; 83880; 84100; 84157; 84484; 85025; 87502; 89051; 93005; 93010; 94640; 94760; 97110; 97112; 97116; 97162; 97166; 97530; 97535; 99285-25; A9270; C9803; J1815; J2250; J3010; J3475; J7040; J7121; Q9967; U0002